=== PATIENT | female | born 1970 | race Caucasian/White ===

== ENCOUNTER 2019-03-23 16:11 | Emergency (ER) | payer OTHER ==
[~2019-03-23] VITALS: Ht 165.1 cm; Wt 85.0 kg
[2019-03-23] MEDS ORDERED: HYDROCODONE/ACETAMINOPHEN 10/325MG TABLET PO ONE (17:30)
[2019-03-23] MEDS ORDERED: KETOROLAC 60MG/2ML VIAL IM ONE (18:00)
[2019-03-23 19:27] LABS: *COCAINE SCREEN URINE NEGATIVE (NEGATIVE); METHADONE URINE SCREEN NEGATIVE (NEGATIVE)
[2019-03-23 19:28] LABS: *AMPHETAMINES SCREEN URINE NEGATIVE (NEGATIVE); *BARBITURATES SCREEN URINE NEGATIVE (NEGATIVE); *BENZODIAZEPINES SCREEN URINE NEGATIVE (NEGATIVE); CANNABINOID URINE SCREEN NEGATIVE (NEGATIVE); OPIATES URINE SCREEN NEGATIVE (NEGATIVE); PHENCYCLIDINE URINE SCREEN NEGATIVE (NEGATIVE)
[2019-03-24 09:45] VITALS: BP 167/83
== END 2019-03-24 09:47 | disposition home or self-care (01) ==
LOC: ER 16:11
DX: Z59.0 Homelessness (principal); M06.9 Rheumatoid arthritis, unspecified; I10 Essential (primary) hypertension
CPT/HCPCS: 80305; 81025; 99283; J1885

== ENCOUNTER 2022-05-05 06:04 | Emergency (ER) | payer OTHER, MEDICAID ==
[~2022-05-05] VITALS: Ht 157.5 cm; Wt 73.0 kg
[2022-05-05 06:12] VITALS: BP 152/90
[2022-05-05] MEDS ORDERED: ACETAMINOPHEN WITH CODEINE 300/30MG TABLET PO ONE (06:30)
[2022-05-05] MEDS ORDERED: KETOROLAC 60MG/2ML VIAL IM ONE (06:30)
[2022-05-05] MEDS ORDERED: T3 PO ×3 (08:22→11:07)
[2022-05-05] MEDS ORDERED: NAPR-681 PO ×3 (08:22→11:07)
[2022-05-05] MEDS ORDERED: ACETAMINOPHEN WITH CODEINE 300/30MG TABLET PO NR (09:30)
[2022-05-05] MEDS ORDERED: KETOROLAC 60MG/2ML VIAL IM NR (09:30)
== END 2022-05-05 09:31 | disposition home or self-care (01) ==
LOC: ER 06:04
DX: M19.031 Primary osteoarthritis, right wrist (principal); I10 Essential (primary) hypertension; Z98.890 Other specified postprocedural states
CPT/HCPCS: 73100; 96372; 99283; J1885

== ENCOUNTER 2024-01-03 12:58 | Emergency (ER) | payer MEDICARE, MEDICAID ==
[~2024-01-03] VITALS: Ht 157.5 cm; Wt 82.0 kg
[~2024-01-03 12:58] MED LIST: NAPR-681 PO; T3 PO
[2024-01-03 13:03] VITALS: BP 154/90; PULSE 98; RESP 16; TEMP 101.8; O2SAT 99
== END 2024-01-03 15:32 | disposition home or self-care (01) ==
LOC: ER 12:58
DX: M25.552 Pain in left hip (principal); M25.562 Pain in left knee; M17.12 Unilateral primary osteoarthritis, left knee; M79.7 Fibromyalgia
CPT/HCPCS: 73502; 73560; 99284